=== PATIENT | male | born 1945 | race Caucasian/White ===

== ENCOUNTER 2016-08-09 16:48 | Emergency (ER) | payer MEDICARE ==
[~2016-08-09] VITALS: Ht 177.8 cm; Wt 78.0 kg
[~2016-08-09 16:48] MED LIST: ACETAMINOPHEN &1 TA1 PO; ATORVASTATIN CA80 M1 PO; CHANTIX1 M1 PO; DULOXETINE HCL30 MG PO; LISINOPRIL AND1 TAB PO; ROPINIROLE HYDRO3 MG PO
[2016-08-09 17:00] VITALS: BP 146/88
[2016-08-09] MEDS ORDERED: ROBITUSSIN AC 110 ML PO (17:57)
[2016-08-09] MEDS ORDERED: PREDNISONE10 MG PO (17:57)
[2016-08-09] MEDS ORDERED: CLARITIN10 MG PO (17:57)
[2016-08-09] MEDS ORDERED: FLONASE ALLERG9.9 ML NAS (17:57)
== END 2016-08-09 18:07 | disposition home or self-care (01) ==
LOC: ED 16:48
DX: B34.9 Viral infection, unspecified (principal); I10 Essential (primary) hypertension; Z87.891 Personal history of nicotine dependence

== ENCOUNTER → 2016-11-29 | Outpatient (CLI) | payer MEDICARE ==
[~2016-11-29] MED LIST changes: +CLARITIN10 MG PO; +FLONASE ALLERG9.9 ML NAS; +PREDNISONE10 MG PO; +ROBITUSSIN AC 110 ML PO
== END | disposition home or self-care (01) ==
LOC: RAD 09:03
DX: M19.012 Primary osteoarthritis, left shoulder (principal); M81.8 Other osteoporosis without current pathological fracture

== ENCOUNTER → 2019-01-13 | Outpatient (CLI) | payer MEDICARE ==
--- NOTE | ~2019-01-13 | HM ---
[place], [place] HOLTER MONITOR REPORT NAME: LEYDI BRYANT UNIT #: [id number] ROOM: DOCTOR: PASCALE LOPES MD BIRTHDATE: [birth year] DOS: 01/15/2019 24-HOUR HOLTER REPORT REASON FOR TESTING: Palpitations. FINDINGS: The patient was monitored for 24 hours. His average heart rate was 75 with minimum of 47 and maximum heart rate of 117. Ventricular ectopy in the form of triplets, couplets, PVCs, bigeminy and trigeminy was seen. The patient also had 3 episodes of SVT, the longest SVT run was about 5 beats with a maximum heart rate of 156. The patient did have some complaints, but no arrhythmia was seen at the time of his complaint. PASCALE LOPES MD CM:HOLTER:HOLTER MONITOR REPORT [id number] PASCALE LOPES MD
== END | disposition home or self-care (01) ==
LOC: CARD 00:18
DX: R00.2 Palpitations (principal); I63.9 Cerebral infarction, unspecified

== ENCOUNTER → 2019-08-10 | Outpatient (CLI) | payer MEDICARE ==
[2019-08-10 11:23] LABS: BASO # 0.1 10*3/uL (0.0-0.1); BASO % 0.8 % (0.0-1.0); EOS # 0.4 10*3/uL (0.0-0.4); EOS % 4.3 % (1.0-4.0); HEMATOCRIT 41.2 % (42.0-52.0); HEMOGLOBIN 13.3 g/dl (14.0-18.0); LYMPH # 3.7 10*3/uL (1.3-4.4); LYMPH % 39.7 % (27.0-41.0); MEAN CELL VOLUME 102.2 fl (80.0-94.0); MEAN CORPUSCULAR HGB CONC 32.3 g/dl (33.0-37.0); MONO # 0.8 10*3/uL (0.1-1.0); MONO % 8.6 % (3.0-9.0); NEUT # 4.3 10*3/uL (2.3-7.9); NEUT % 46.4 % (47.0-73.0); PLATELET COUNT AUTOMATED 326 10*3/uL (130-400); RED BLOOD COUNT 4.03 10*6/uL (4.50-5.90); RED CELL DISTRI WIDTH 13.7 % (0-14.5); WHITE BLOOD COUNT 9.3 10*3/uL (4.8-10.8)
[2019-08-10 11:42] LABS: BUN 17 mg/dl (7-24); CHLORIDE 105 mmol/L (98-107); CHOLESTEROL 263 mg/dL (<200); CREATININE 0.94 mg/dL (0.70-1.30); POTASSIUM 4.8 mmol/L (3.5-5.1); SGOT/AST 11 IU/L (3-35); SGPT/ALT 15 U/L (12-78); SODIUM 138 mmol/L (136-145); TOTAL PROTEIN 7.5 gm/dL (6.4-8.2); TRIGLYCERIDES 132 mg/dl (<150); VLDL CHOLESTEROL 26 mg/dL (6-40)
[2019-08-10 11:48] LABS: ALKALINE PHOSPHATASE 113 U/L (45-117); FREE T4 0.77 ng/dl (0.76-1.46); HDL CHOLESTEROL 67 mg/dl (40-60); LDL CHOLESTEROL 170 mg/dL (9-159); THYROID STIM HORMONE (HS) 0.706 uIU/ml (0.358-4.75)
== END | disposition home or self-care (01) ==
LOC: LAB 10:40
PROVIDERS: Internal Medicine
DX: Z13.1 Encounter for screening for diabetes mellitus (principal); I10 Essential (primary) hypertension; E78.2 Mixed hyperlipidemia; E55.9 Vitamin D deficiency, unspecified

== ENCOUNTER → 2020-06-01 | Outpatient (CLI) | payer MEDICARE | END | disposition home or self-care (01) | LOC: RAD 15:34 | PROVIDERS: ATTEND Internal Medicine | DX: R07.9 Chest pain, unspecified (principal) ==

== ENCOUNTER → 2020-11-28 | Outpatient (CLI) | payer MEDICARE | END | disposition home or self-care (01) | LOC: CT 07:56 | PROVIDERS: ATTEND Internal Medicine | DX: J32.8 Other chronic sinusitis (principal); R51.9 Headache, unspecified ==

== ENCOUNTER → 2021-09-05 | Outpatient (CLI) | payer MEDICARE | END | disposition home or self-care (01) | LOC: CARD 15:04 | PROVIDERS: ATTEND Nurse Practitioner Adult Health | DX: I45.10 Unspecified right bundle-branch block (principal); I48.19 Other persistent atrial fibrillation; I49.3 Ventricular premature depolarization; I44.5 Left posterior fascicular block ==

== ENCOUNTER 2022-06-27 21:31 | Emergency (ER) | payer MEDICARE ==
[~2022-06-27] VITALS: Ht 172.7 cm; Wt 78.0 kg
[2022-06-27 23:34] LABS: BASO # 0.1 10*3/uL (0.0-0.1); BASO % 0.8 % (0.0-1.0); EOS # 0.5 10*3/uL (0.0-0.4); EOS % 5.8 % (1.0-4.0); HEMATOCRIT 29.9 % (42.0-52.0); LYMPH # 3.4 10*3/uL (1.3-4.4); LYMPH % 43.2 % (27.0-41.0); MEAN CELL VOLUME 100.7 fl (80.0-94.0); MEAN CORPUSCULAR HGB 32.3 pg (27.0-31.0); MEAN CORPUSCULAR HGB CONC 32.1 g/dl (33.0-37.0); MEAN PLATELET VOLUME 8.6 fl (9.6-12.3); MONO % 12.3 % (3.0-9.0); NEUT % 37.6 % (47.0-73.0); PLATELET COUNT AUTOMATED 455 10*3/uL (130-400); RED BLOOD COUNT 2.97 10*6/uL (4.50-5.90); RED CELL DISTRI WIDTH 15.4 % (0-14.5)
[2022-06-27 23:47] LABS: BUN 25 mg/dl (7-24); CHLORIDE 107 mmol/L (98-107); CREATININE 0.86 mg/dL (0.70-1.30); POTASSIUM 4.3 mmol/L (3.5-5.1); SODIUM 140 mmol/L (136-145)
[2022-06-28 01:15] VITALS: BP 105/72
== END 2022-06-28 01:42 | disposition home or self-care (01) ==
LOC: ED 21:31
PROVIDERS: Internal Medicine
DX: G45.9 Transient cerebral ischemic attack, unspecified (principal); N17.9 Acute kidney failure, unspecified; D64.9 Anemia, unspecified; Z79.899 Other long term (current) drug therapy; Z90.89 Acquired absence of other organs; Z87.891 Personal history of nicotine dependence

== ENCOUNTER → 2022-11-13 | Outpatient (CLI) | payer MEDICARE | END | disposition home or self-care (01) | LOC: CARD 09:28 | PROVIDERS: ATTEND Internal Medicine | DX: I77.810 Thoracic aortic ectasia (principal); I48.0 Paroxysmal atrial fibrillation; Z95.2 Presence of prosthetic heart valve ==